=== PATIENT | female | born 1975 | race Caucasian/White ===

== ENCOUNTER → 2017-07-12 | Outpatient (CLI) | payer OTHER ==
[2017-07-12] MEDS: GADOBUTROL 7.5 MMOL/7.5 ML VIAL IV (09:59)
== END | disposition home or self-care (01) ==
LOC: MRI 08:44
DX: G43.909 Migraine, unspecified, not intractable, without status migrainosus (principal); R68.89 Other general symptoms and signs
CPT/HCPCS: 70553; A9585